=== PATIENT | female | born 1985 | race Caucasian/White ===

== ENCOUNTER 2020-02-24 22:33 | Emergency (ER) | payer OTHER ==
[~2020-02-24] VITALS: Ht 172.7 cm; Wt 113.4 kg
[2020-02-24] MEDS ORDERED: PREDNISONE 20 M20 MG PO (23:35)
[2020-02-24] MEDS ORDERED: PEPCID20 MG PO (23:35)
[2020-02-24] MEDS ORDERED: VENTOLIN HFA 1818 GM INH (23:36)
[2020-02-24 23:52] VITALS: BP 148/64
== END 2020-02-24 23:53 | disposition home or self-care (01) ==
LOC: ER 22:33
DX: L30.9 Dermatitis, unspecified (principal)